=== PATIENT | female | born 1985 | race Hispanic/Latino ===

== ENCOUNTER 2016-06-15 16:42 | Emergency (ER) | payer BC ==
[2016-06-15 17:12] VITALS: BP 104/78
[2016-06-15] MEDS ORDERED: KETOROLAC TROMETHAMINE 60 MG/2 ML VIAL IM ONE ×2 (17:42→17:45)
--- NOTE | 2016-06-15 17:45 | ERNOTE ---
Back Pain ER HPI Date of Service: 06/15/16 Time Seen by Provider: 06/15/16 17:34 Source: patient Immunizations: IMMUNIZATION HX Immunizations Up to Date Yes History of Influenza Vaccine No Allergies/Adverse Reactions: Allergies No Known Allergies Allergy (Verified 06/15/16 17:12) Home Medications: HOME MEDICATIONS Metoprolol Succinate [Toprol Xl] 200 mg PO DAILY 02/06/15 [Last Taken Unknown] Cyclobenzaprine HCl [Flexeril] 10 mg PO TID PRN #30 tab 06/15/16 [Last Taken Unknown] Narrative: Here for low back pain for 8 days since she bent over then straightened and felt a sharp pain in the lumbar region. Pain is bilateral with some radiation down the left buttock. Review of Systems - Review of Systems Constitutional: Present: no symptoms reported Respiratory: Present: no symptoms reported Cardiology: Present: no symptoms reported Musculoskeletal: Present: See HPI - Patient's Past Medical History Patient History - Cardiac/Respiratory: Hypertension Patient History - Cancer: No Hx of Cancer Patient History - Surgical Procedures: Cholecystectomy, Patient History - Other: None - Family History Mother Family History - Medical: No pertinent hx Father Family History - Medical: No pertinent hx - Social History Living Situations: significant other Abuse History: No History of abuse Psych History: No pertinent hx Smoking Status: Never smoker Alcohol Use: occasionally Drug Use: none - Immunizations Immunizations Up to Date: Yes History of Influenza Vaccine: No Physical Exam - Physical Exam General Appearance: Present: wd/wn, alert, no apparent distress Ears, Nose, Throat: Present: normal ENT inspection Neck: Present: normal inspection Respiratory: Present: no respiratory distress, normal breath sounds, no accessory muscle use, chest nontender, lungs clear Cardiovascular/Chest: Present: regular rate, rhythm, no murmur, normal peripheral pulses Back Exam: Present: other - tender upon palpation of the lumbar region bilaterally. she has positive SLR's on the left side. Patellar reflexes are intact and equal bilaterally Extremity Exam: Present: normal inspection ED Progress - Vital Signs Patient's Vital Signs:: I have reviewed the patient's vital signs. Vital Signs: Vital Signs 06/15/16 17:03 Temperature 37.9 C H Pulse Rate 84 Respiratory 16 Rate Blood Pressure 104/78 O2 Sat by Pulse 98 Oximetry - Progress/Reassessment Chief Complaint: Back Pain Departure Clinical Impression: Muscle spasm - Departure Disposition: Home self-care Condition: Fair Instructions: Low Back Sprain With Rehab[facility] Referrals: Karina Gomez MD [Primary Care Provider] - Prescriptions: Cyclobenzaprine HCl [Flexeril] 10 mg PO TID PRN #30 tab PRN Reason: MUSCLE SPASMS
== END 2016-06-15 17:59 | disposition home or self-care (01) ==
LOC: ER 16:42
DX: M62.830 Muscle spasm of back (principal); I10 Essential (primary) hypertension

== ENCOUNTER 2016-06-17 05:27 | Emergency (ER) | payer BC ==
[2016-06-17] MEDS ORDERED: ONDANSETRON HCL/PF 2 MG/ML VIAL IV ONE (05:50)
[2016-06-17] MEDS ORDERED: NORMAL SALINE 1,000 ML IV ONE (05:51)
[2016-06-17] MEDS ORDERED: METOPROLOL TARTRATE 1 MG/ML AMPUL IV ONE ×4 (05:51→06:49)
[2016-06-17] MEDS ORDERED: ORPHENADRINE CITRATE 30 MG/ML VIAL IV ONE (05:52)
[2016-06-17] MEDS ORDERED: ONDANSETRON HCL/PF 2 MG/ML VIAL ONE (05:54)
[2016-06-17] MEDS ORDERED: ORPHENADRINE CITRATE 30 MG/ML VIAL ONE (05:55)
--- NOTE | 2016-06-17 05:56 | ERNOTE ---
Back Pain ER HPI Presenting Symptoms: injury/pain to back Time Seen by Provider: 06/17/16 05:45 Source: patient Exam Limitations: no limitations Immunizations: IMMUNIZATION HX Immunizations Up to Date Yes History of Influenza Vaccine No Hx Pneumococcal Vaccination No Allergies/Adverse Reactions: Allergies No Known Allergies Allergy (Verified 06/15/16 17:12) Home Medications: HOME MEDICATIONS Metoprolol Succinate [Toprol Xl] 200 mg PO DAILY 02/06/15 [Last Taken Unknown] Cyclobenzaprine HCl [Flexeril] 10 mg PO TID PRN #30 tab 06/15/16 [Last Taken Unknown] Ondansetron HCl [Zofran] 1 - 2 tab PO Q8H PRN #10 tab 06/17/16 [Last Taken Unknown] Narrative: Woke up with back pain last week was prescribed flexeril and is taking ibuprofen. Last night she began to vomit and has been unable to hold down any medications. Takes metoprolol 200 BID for HTN and has not been able to keep that down either. Timing: Reports: getting worse Quality/Severity: Reports: moderate Location of pain: Reports: lower back Activities at Onset: Reports: sleep Recent Injury?: Reports: no Possible Precipitating Factor: Reports: none Review of Systems - Review of Systems Constitutional: Present: no symptoms reported EYE: Present: no symptoms reported ENT: Present: no symptoms reported Gastrointestinal/Abdominal: Present: See HPI - Patient's Past Medical History Patient History - Medical: Obesity Patient History - Cardiac/Respiratory: Hypertension Patient History - Cancer: No Hx of Cancer Patient History - Surgical Procedures: Cholecystectomy, Patient History - Other: None LMP (females 10-50): last week - Family History Mother Family History - Medical: No pertinent hx Father Family History - Medical: No pertinent hx - Social History Living Situations: home Abuse History: Hx of Substance Use Psych History: No pertinent hx Smoking Status: Never smoker Alcohol Use: occasionally Drug Use: none - Immunizations Immunizations Up to Date: Yes Hx Pneumococcal Vaccination: No History of Influenza Vaccine: No Physical Exam - Physical Exam General Appearance: Present: wd/wn, alert, mild distress Ears, Nose, Throat: Present: normal ENT inspection Neck: Present: normal inspection, nontender Respiratory: Present: no respiratory distress, normal breath sounds, lungs clear Cardiovascular/Chest: Present: regular rate, rhythm, no murmur Gastrointestinal/Abdominal: Present: normal bowel sounds Back Exam: Present: decreased range of motion, muscle spasm Extremity Exam: Present: normal inspection, non-tender Neurological Exam: Present: alert, oriented, no motor/sensory deficits Skin Exam: Present: normal color, warm/dry ED Progress - Results and Orders Patient's Lab Results:: I have reviewed the patient's lab results. Results and Orders: Laboratory Tests 06/17/16 06/17/16 06:09 06:09 WBC 10.4 Hgb 13.5 Hct 40.9 Plt Count 436 Sodium 140 Potassium 3.6 Chloride 103 Carbon Dioxide 26.1 BUN 11 Creatinine 0.82 Est GFR (Non-Af Amer) 86 Random Glucose 124 H Calcium 8.8 Total Bilirubin 0.5 AST 16 ALT 22 Alkaline Phosphatase 94 Total Protein 8.4 H Albumin 3.8 - Vital Signs Patient's Vital Signs:: I have reviewed the patient's vital signs. Vital Signs: Vital Signs 06/17/16 05:30 Temperature 36.5 C Pulse Rate 125 H Respiratory 18 Rate Blood Pressure 225/124 O2 Sat by Pulse 100 Oximetry - X-Ray X-Ray #1 X-Ray: abdomen Interpretation: Interp. by me X-ray Comments: mild stool retention in the acending colon, no evidence for obstruction - Progress/Reassessment Chief Complaint: Back Pain Progress:: Improved Progress Note-Subjective: 06/17/16 07:09 Pt believes nausea is somewhat better. will try some clear liquids and see if she tolerates them. if so we will try giving her oral metoprolol. 06/17/16 07:18 BP has been reading high and we have given 2 doses of IV metoprolol without decline in BP. I checked the cuff being used and it was too small for her arm. manual BP with larger cuff gave 192/98. 06/17/16 07:44 Pt tolerated fluids without any nausea, will give her usual dose of metoprolol 200mg. Departure Clinical Impression: Nausea Hypertension Qualifiers: Hypertension type: essential hypertension Qualified Code(s): I10 - Essential ( primary) hypertension - Departure Disposition: Home Follow Up Needed Condition: Good Instructions: Nausea, Adult, Hypertension, [id number] Referrals: Karina Gomez MD [Primary Care Provider] - Prescriptions: Ondansetron HCl [Zofran] 1 - 2 tab PO Q8H PRN #10 tab PRN Reason: Nausea
[2016-06-17 06:12] LABS: Hematocrit 40.9 % (37.0-47.0); Hemoglobin 13.5 gm/dL (12.5-16.0); Mean Cell Volume 78.8 fl (78-100); Mean Platelet Volume 9.7 fl (6.0-9.5); Neutrophil % 67.5 % (42-75.0); Platelet Count 436 K/mm3 (150-450); Red Blood Count 5.19 M/mm3 (4.2-5.4); Red Cell Distribution Width 13.2 % (11.5-14.0); White Blood Count 10.4 K/mm3 (4.0-10.5)
[2016-06-17 06:24] LABS: Albumin * 3.8 gm/dl (3.4-5.0); Anion Gap 14.5 mmol/L (6.8-13.8); BUN/Creatinine Ratio 13.4 (9.0-21.6); Bilirubin, Total 0.5 mg/dL (0.0-1.1); Ca. Corrected For Albumin 8.6 mg/dL (8.4-10.2); Calcium * 8.8 mg/dL (7.9-10.9); Carbon Dioxide 26.1 mmol/L (24-32.6); Potassium 3.6 mmol/L (3.4-4.6); Total Protein 8.4 gm/dL (6.2-8.2)
[2016-06-17] MEDS ORDERED: METOPROLOL TARTRATE 100 MG TABLET PO ONE (07:40)
[2016-06-17] MEDS ORDERED: METOPROLOL TARTRATE 100 MG TABLET ONE (07:47)
[2016-06-17 07:51] VITALS: BP 198/100
== END 2016-06-17 08:06 | disposition home or self-care (01) ==
LOC: ER 05:27
DX: R11.0 Nausea (principal); I10 Essential (primary) hypertension